=== PATIENT | female | born 1985 | race Caucasian/White ===

== ENCOUNTER 2021-03-26 21:17 | Emergency (ER) | payer OTHER ==
[2021-03-26 21:53] LABS: HEMOGLOBIN 14.6 gm/dl (12.3-15.3); RED BLOOD COUNT 4.67 M/UL (4.00-5.10); WHITE BLOOD COUNT 16.1 K/UL (4.5-11.0)
[2021-03-26 22:23] LABS: BUN/CREATININE RATIO 18 (0-10)
== END 2021-03-27 00:05 | disposition home or self-care (01) ==
LOC: ER1 21:17
PROVIDERS: Emergency Medicine
DX: R00.2 Palpitations (principal); I10 Essential (primary) hypertension
CPT/HCPCS: 71045; 80053; 82550; 82553; 83874; 84439; 84443; 84484; 85025; 93005; 99285

== ENCOUNTER 2021-08-15 21:30 | Emergency (ER) | payer OTHER ==
[2021-08-16 00:19] LABS: HEMOGLOBIN 14.4 gm/dl (12.3-15.3); RED BLOOD COUNT 4.74 M/UL (4.00-5.10); WHITE BLOOD COUNT 11.9 K/UL (4.5-11.0)
== END 2021-08-16 03:14 | disposition home or self-care (01) ==
LOC: ER1 21:30
PROVIDERS: Emergency Medicine
DX: O03.4 Incomplete spontaneous abortion without complication (principal)
CPT/HCPCS: 81001; 84702; 85025; 86850; 86900; 86901; 99284; J2790; J2791